=== PATIENT | female | born 1985 | race Caucasian/White ===

== ENCOUNTER 2017-04-02 11:46 | Emergency (ER) | payer MEDICAID ==
[2017-04-02 11:53] VITALS: BP 145/107; PULSE 112; RESP 18; TEMP 97.9; O2SAT 98
--- NOTE | 2017-04-02 12:42 | EDPHY ---
H & P Stated Complaint: Slipped and fell on Sunday;c/o thoracic back pain, L hip pain Time Seen by Provider: 04/02/17 12:04 HPI/ROS: CHIEF COMPLAINT: Thoracic and lumbar back pain post mechanical fall HISTORY OF PRESENT ILLNESS: 31-year-old female arrives via private vehicle stating that 3 nights ago while camping she tripped and fell landing on her thoracic and lumbar spine. Complaining of pain to same location ever since. No incontinence no retention no saddle anesthesia no buttock pain. She also complains of nausea today, late on her menstrual period. No abdominal pain. No vaginal bleeding or discharge. No head injury. PRIMARY CARE PROVIDER: In [place] REVIEW OF SYSTEMS: A ten point review of systems was performed and is negative with the exception of the items mentioned in the HPI PAST MEDICAL/SURGICAL HISTORY: no anticoagulant use, no relevant medical/ surgical history SOCIAL HISTORY: Lives in [place] PHYSICAL EXAM 1) GENERAL: Well-developed, well-nourished, alert and oriented. Appears uncomfortable when asked to move Answering questions appropriately. 2) HEAD: Normocephalic, atraumatic 3) HEENT: Pupils equal, round, reactive to light bilaterally. Negative Horners. Nasopharynx, oropharynx, clear. No deformity or angulation of nose. No septal hematoma. No rhinorrhea. No oral trauma. Ears bilaterally with normal tympanic membranes. No hemotympanum. No fluid or blood in the external auditory canal. No raccoon eyes. No Ramos sign. Teeth are normally aligned with no gross malocclusion, TMJ bilaterally nontender, facial bones nontender including the zygomatic arch, maxilla mandible. 4) NECK: No cervical collar is on. Posterior cervical spine is nontender, no stepoff, no effusion. Full range of motion which does not elicit any midline cervical spine pain, no posterior midline tenderness, no step-off. 5) LUNGS: Clear to auscultation bilaterally, no wheezes, no rhonchi, no retractions. No obvious signs of trauma. No chest wall pain. No flaring, no grunting. Moving symmetrically. No crepitus. 6) HEART: Regular rate and rhythm, 7) ABDOMEN: No guarding, no rebound, no focal tenderness, no peritoneal signs, no signs of trauma, no ecchymosis 8) MUSCULOSKELETAL: Moving all extremities, no focal areas of tenderness, no obvious trauma. Patella, Achilles reflexes intact to bilateral strength 5/5 9) BACK: no visible signs of trauma. Unable to differentiate true midline versus just lateral of midline lower thoracic and upper lumbar pain. Tender to palpation in the paraspinous musculature on the left side. No sacral pain. No buttock pain. No midline vertebral tenderness, no fluctuance, no step-off, no obvious trauma, no visual or palpable abnormality. 10) SKIN: No laceration. No abrasion DIFFERENTIAL DIAGNOSIS: in no particular order including but not limited to fracture, sprain, strain, cauda equina - Personal History LMP (Females 10-55): Unknown Current Tetanus Diphtheria and Acellular Pertussis (TDAP): Yes - Medical/Surgical History Hx Asthma: Yes - Social History Smoking Status: Current every day smoker Constitutional: Initial Vital Signs Temperature (C) 36.6 C 04/02/17 11:49 Heart Rate 112 H 04/02/17 11:49 Respiratory Rate 18 04/02/17 11:49 Blood Pressure 145/107 H 04/02/17 11:49 O2 Sat (%) 98 04/02/17 11:49 O2 Delivery Mode Room Air Allergies/Adverse Reactions: No Known Allergies Allergy (Unverified 04/02/17 11:53) Home Medications: Medication Instructions Recorded Albuterol [Proventil Inhaler HFA 1 - 2 puffs IH 04/02/17 (*)] Medical Decision Making ED Course/Re-evaluation: 2:04 pm: Informed at this time that the patient had walked out of the emergency department without informing myself or other medical staff, we did not obtain a urine sample on the patient, she did not obtain imaging studies. Patient had allegedly stated that she was tired of waiting. - Data Points Medications Given: Discontinued Medications Cyclobenzaprine HCl (Flexeril) 10 mg PO EDNOW ONE Stop: 04/02/17 12:30 Last Admin: 04/02/17 14:02 Dose: Not Given Ondansetron HCl (Zofran Odt) 4 mg PO EDNOW ONE Stop: 04/02/17 13:33 Last Admin: 04/02/17 13:35 Dose: 4 mg Departure - Departure Disposition: Against Medical Advice Referrals: NONE *PRIMARY CARE P,. [Unknown] - As per Instructions
[2017-04-02] MEDS: ONDANSETRON DISINTEGRATING 4 MG TAB PO ONE (13:35)
[2017-04-02] MEDS: CYCLOBENZAPRINE 10 MG TAB PO ONE (14:02)
== END 2017-04-02 14:05 | disposition left against medical advice (07) ==
DX: S39.92XA Unspecified injury of lower back, initial encounter (principal); W01.0XXA Fall on same level from slipping, tripping and stumbling without subsequent striking against object, initial encounter